=== PATIENT | male | born 1955 | race Caucasian/White ===

== ENCOUNTER → 2019-05-20 | Outpatient (CLI) | payer OTHER ==
[2019-05-20 11:15] LABS: Basophils # (A) 0.1 k/uL (0-0.2); Basophils % (A) 1 %; Eosinophils # (A) 0.6 k/uL (0-0.7); Eosinophils % (A) 7 %; HCT 47.7 % (39.0-53.0); HGB 15.5 gm/dL (13.0-17.5); Lymphocytes # (A) 2.4 k/uL (1.0-4.8); Lymphocytes % (A) 28 %; MCH 29.9 pg (25.0-35.0); MCHC 32.6 g/dL (31.0-37.0); MCV 91.8 fL (80.0-100.0); Mean Platelet Volume 8.4; Monocytes # (A) 0.4 k/uL (0-1.0); Monocytes % (A) 5 %; Neutrophils # (A) 5.1 k/uL (1.3-7.7); Neutrophils % (A) 59 %; Platelet Count 283 k/uL (150-450); RBC 5.19 m/uL (4.30-5.90); RDW 13.5 % (11.5-15.5); WBC 8.7 k/uL (3.8-10.6)
[2019-05-20 11:47] LABS: Partial Thromboplastin Time 23.3 sec (22.0-30.0); Prothrombin Time 10.5 sec (9.0-12.0)
[2019-05-20 13:08] LABS: Appearance,Urine Clear (Clear); Bilirubin,Urine Negative (Negative); Blood,Urine Negative (Negative); Color,Urine Light Yellow; Glucose,Urine (UA) 4+ (Negative); Ketones,Urine Negative (Negative); Leukocyte Esterase,Urine Negative (Negative); Nitrite,Urine Negative (Negative); PH, Urine 5.5 (5.0-8.0); Protein,Urine Negative (Negative); Specific Gravity,Urine 1.032 (1.001-1.035); Urobilinogen,Urine <2.0 mg/dL (<2.0)
[2019-05-20 16:52] LABS: African American GFR (CKD) 111.7 (60.0-200.0); Albumin 4.5 g/dL (3.80-4.90); Albumin/Globulin Ratio 2.25 (1.60-3.17); BUN/Creat Ratio 18.75 Ratio (12.00-20.00); Calcium 9.9 mg/dL (8.7-10.3); Potassium 4.3 mmol/L (3.5-5.5); Total Bilirubin 0.9 mg/dL (0.2-1.2); Total Protein 6.5 g/dL (6.2-8.2)
== END | disposition home or self-care (01) ==
LOC: LABWHC1 10:11
PROVIDERS: ATTEND Family Medicine
DX: Z01.812 Encounter for preprocedural laboratory examination (principal)
CPT/HCPCS: 36415; 80053; 81003; 85025; 85610; 85730; 87070

== ENCOUNTER 2019-06-03 11:45 | Day surgery (SDC) | payer OTHER ==
[~2019-06-03 11:45] MED LIST: ACETAMINOPHEN TAB 500 MG TAB PO ONE; DEXAMETHASONE SOD PHOSPHATE 10 MG/ML 1 ML VIAL IV ONE; HYDROmorphone 0.5 MG/0.5 ML SYRINGE IVP PRN; LIDOCAINE 1% 20 ML VIAL (10MG/ML) FOR IV START INTRADERMA PRN; MELOXICAM 7.5 MG TAB PO ONE; MIDAZOLAM 2 MG/2 ML VIAL IV PRN; ONDANSETRON 4 MG/2 ML VIAL IVP ONE; ROPIVACAINE 246.25 MG, EPINEPHrine 0.5 MG, KETOROLAC 30 MG, cloNIDine HCL/PF 80 MCG, WA... MISCELLANE ONE; SCOPOLAMINE 1.5MG/72HR PATCH TRANSDERM ONE; TRANEXAMIC ACID 1,000 MG in SODIUM CHLORIDE 0.9% 100 ML IVPB ONE; ceFAZolin IN SWFI 2 GM/20 ML SYRINGE IVP ONE
[2019-06-03] MEDS: LACTATED RINGERS 1,000 ML IV SCH (12:39)
[2019-06-03 12:57] LABS: Glucose,Whole Blood 136 mg/dL (75-99)
[2019-06-03] MEDS ORDERED: HYDROcodone/APAP 10-325MG 1 EACH TAB PO PRN (13:22)
[2019-06-03] MEDS ORDERED: TEMAZEPAM 15 MG CAP PO PRN (13:22)
[2019-06-03] MEDS ORDERED: ACETAMINOPHEN TAB 325 MG TAB PO PRN (13:22)
[2019-06-03] MEDS ORDERED: HYDROcodone/APAP 5-325MG 1 EACH TAB PO PRN (13:22)
[2019-06-03] MEDS ORDERED: NA PHOS,M-B/NA PHOS,DI-BA 133 ML ENEMA RECTAL PRN (13:22)
[2019-06-03] MEDS ORDERED: HYDROmorphone 0.5 MG/0.5 ML SYRINGE IVP PRN ×2 (13:22)
[2019-06-03] MEDS ORDERED: MAGNESIUM HYDROXIDE 2,400 MG/10 ML CUP PO PRN (13:22)
[2019-06-03] MEDS ORDERED: ONDANSETRON 4 MG/2 ML VIAL IVP PRN (13:22)
[2019-06-03] MEDS ORDERED: HYDROmorphone 1 MG/ML 1 ML SYRINGE IVP PRN (13:22)
[2019-06-03] MEDS ORDERED: NALOXONE 0.4 MG/ML 1 ML VIAL IV PRN (13:22)
[2019-06-03] MEDS ORDERED: DIAZEPAM 5 MG TAB PO PRN (13:22)
[2019-06-03] MEDS ORDERED: traMADol 50 MG TAB PO PRN (13:22)
[2019-06-03] MEDS ORDERED: BISACODYL 10 MG SUPP RECTAL PRN (13:22)
[2019-06-03] MEDS ORDERED: LACTATED RINGERS 1,000 ML IV ONE (15:08)
[2019-06-03] MEDS ORDERED: diphenhydrAMINE 50 MG/ML 1 ML VIAL IVP ONE (16:03)
--- NOTE | 2019-06-03 16:05 | OP ---
OPERATIVE REPORT DATE OF PROCEDURE: 06/03/2019. SURGEON: Jerald Hinojosa M.D. COMPRESSOR OPERATOR ADJUSTER: Zia STORM. PREOPERATIVE DIAGNOSIS: Left knee osteoarthrosis. POSTOP DIAGNOSIS: Left knee osteoarthrosis. OPERATION PERFORMED: Left total knee arthroplasty. ANESTHESIA: Spinal sedation. ESTIMATED BLOOD LOSS: 100 mL. TOURNIQUET: Tourniquet time was 60 minutes at 250 mmHg. COMPLICATIONS: None apparent. DRAINS: None. DISPOSITION: Postanesthesia care unit. INDICATIONS: Yao is a very pleasant 63-year-old male with longstanding history of left knee pain. History and physical examination are consistent with advanced left knee osteoarthrosis. He has been through significant nonoperative management up to this point. Further treatment options were discussed and he decided to go forward with a left total knee arthroplasty. The risks of procedure were discussed with him in detail. These risks include, but are not limited to risk of infection, nerve damage, bleeding, pain and risk of deep vein thrombosis which could lead to fatal pulmonary embolism. There is also risk of loosening of the implant which could require revision operation. The patient understands these risks. All of his questions were answered to his satisfaction. Appropriate informed consent was obtained. DESCRIPTION OF PROCEDURE: Patient identified in preoperative holding area. Surgical site was marked by both the patient and myself. He was given 2 g of Ancef IV for prophylactic purposes. He was then transferred to the operative suite. He was placed supine on the operative table. Spinal anesthetic was then administered and dosed per the anesthesia without apparent complication. Examination under anesthesia was then performed. The patient was 2-3 degrees shy of full extension. He had 100 degrees of flexion in the medial collateral ligament, lateral collateral ligament. Posterior cruciate ligaments were stable. Tourniquet was then placed high on the left upper thigh well-padded in preparation for surgery. The patient's left lower extremity was then prepped and draped in usual sterile fashion. Standard surgical pause undertaken to ensure that we were operating on the correct site and that appropriate preop antibiotics were given. All staff in the room were in agreement and we proceeded. The outlines of the patella marked with a surgical pen. A planned 12 cm vertical incision centered over the patella was marked with a surgical pen. Leg was then exsanguinated with an Esmarch dressing. The knee was then flexed and tourniquet was inflated to 250 mmHg. The total total tourniquet time for the procedure was 60 minutes. Incision was then made with a 10 blade scalpel. Dissection was carried down sharply overlying fascia. Great care was taken to minimize the skin flaps. The knee was then exposed using a standard medial parapatellar approach. A small cuff of quadriceps tendon was then left for suturing. He was in a bit of varus preoperatively. A standard medial release was then made. The superficial medial collateral ligament was dissected off the bone around the posterior aspect of the proximal tibia. The medial meniscus was then excised as well. The lateral meniscus was also released anteriorly. The leg was then externally rotated. The patella was everted. The knee was flexed. The retractors were then placed to protect the collateral ligaments. I then proceeded to remove the infrapatellar fat pad. This was excised sharply tangentially with the fibers of the patellar tendon. I then proceeded to remove peripheral osteophytes. This was done with a rongeur. I then proceed with the distal femoral resection. He did have near full extension. A planned 9 mm resection was then done. The femoral canal was then entered in the midline of the femur approximately 10 mm anterior to the origin of the posterior cruciate ligament. The raul was then advanced down the center of the femur and placed intramedullary. Based on the preoperative radiographs, the angle between the anatomic and mechanical axis of the femur was approximately 4-5 degrees. The valgus angle of the distal femoral cutting guide was then set at 4 degrees for the left knee. This femoral cutting guide was then advanced over the intramedullary raul. This was seated firmly against the femur. I then mentioned planned to take 9 mm off the distal femur. The cutting block was then secured onto the femur with pins. The jigs were then removed. The distal femoral cut was made through the slot of the block. The pins were then removed. The distal femoral cutting block was removed. The accuracy of the distal femoral cuts was checked with 2 flat bars. I then proceed to femoral sizing. Posterior referencing sizing guide was held firmly against the resected distal surface of the femur. The posterior condyles were resting on the posterior plane of the guide. The sizing stylus was then placed onto the anterior femur. The size measured as a size 11. I then assessed for femoral rotation. The plan was for 3 degrees of external rotation. Three degrees of external rotation was placed onto the jig. These holes were then marked. I then confirmed the rotation by 3 separate methods. This done using epicondylar axis as well as Whitesides line and posterior referencing. It was deemed that the external rotation was proper. I then went forward placing the femoral cutting block. This was placed over the previously placed pin holes. The Luan wing was then placed onto the anterior slots to ensure that we would not notch the anterior femur with the anterior femoral cut. I then proceed with the anterior femoral cut. This was flush with the anterior cortex of the femur. Posterior cuts were then made followed by the anterior chamfer cut, then the posterior chamfer cut. The cutting block was then removed. Throughout the resection, the collateral ligaments were protected with retractors. I then placed a trial size 11 femur. It was slightly wide mediolateral but the narrow was with a fit very nicely and it fit flush with the distal end of the femur. The drill holes were then made. I then proceed with tibial cut. I planned for cruciate retaining knee. The guide was placed in separate varus valgus and for slope. The height was set for approximate 2 mm resection from the medial tibial plateau which was the lower side. I was happy with the alignment and the amount of resection. The cutting block was then pinned to the proximal tibia. The alignment raul was removed. The proximal tibia was resected with a reciprocating saw. Again this was done with retractors protecting the collateral ligaments as well as the posterior cruciate ligament. I then proceeded to evaluate the flexion extension gaps. A 10 mm block was then placed. The flexion-extension gaps were equal. I then proceeded with resection of posterior osteophytes. He had very extensive posterior osteophytes. This was done using a curved osteotome. This resected the posterior osteophytes and posterior capsule stripping was done off the posterior aspect of the femur at this time. The osteophytes were then removed. I then proceed resection of the patella. The thickness of patella was measured using the caliper. The thickness was 24 mm. The thickness of the anticipated patellar dome was taken into account. Resection was then performed and confirmed to be equal in 4 quadrants using a caliper. Approximately 14 mm of bone remained after resection. A 32 x 8.5 mm standard patellar trial was then placed. The holes were drilled. The trial was then placed. I then proceeded with sizing the tibial plate. A size F tibial plate fit very nicely. I then placed the trial femur, the tibial tray and patellar button. A 10 mm trial tibial insert was then also placed. The components fit very nicely. He had full extension and flexion. The flexion-extension gaps were equal and stable to both varus and valgus stress. The patella tracked appropriately. Tibial tray rotation was then marked with a Bovie. This was externally rotated properly. I then proceed with tibial preparation. I first drilled the femoral holes, removed femoral component. The tibial tray was then set for proper external rotation as well as mediolateral placement onto the tibia. It was then pinned into place. I then proceeded with punching the keel. I then decided to proceed with cementing of all of our components. The knee was thoroughly irrigated with sterile saline solution via pulse lavage. The lateral geniculate artery was identified and cauterized. All blood was removed from the bone of the tibia femur and patella with pulse lavage. I then proceeded with cementing. Two packs of antibiotic bone cement prepared on the back table by the surgical garment assembler. I then proceeded with cementing the tibia first. The cement was impacted into the keel as well as deeply seated into the bone. A second coat of cement was then placed. The tibia was then impacted into place. Excess cement was removed with Ruiz's and Joker's. I then proceed with cementing the femoral component. The femoral component was also cemented using standard technique. Excess cement was removed. A 10 mm trial insert was then placed into the knee. It was brought into full extension with a constant axial load placed until the cement had hardened. The patellar component was then cemented. This held firmly with a compressive device until the cement had dried. When the cement had dried, the knee was taken out of extension. All excess cement was removed from around the prosthesis. I then trialed the knee with a 10 mm insert. Flexion extension gaps were appropriate. The knee was stable. It came into full extension. I decided to go forward with a 10 mm cross-linked cruciate-retaining tibial insert. Polyethylene was then placed onto the tibial tray and locked into place. The knee was then reduced. The knee was again further irrigated with sterile saline solution with antibiotic added. The tourniquet was then deflated. Total tourniquet time for the procedure was 60 minutes at 250 mmHg. Final components were Soraida Persona size 11 narrow cruciate-retaining femoral component, a size F tibial tray, a 10 mm medial congruent cruciate-retaining polyethylene insert and a 32 x 8.5 mm patella. I then proceeded with closure. Again, the knee was thoroughly irrigated. The quadriceps tendon and the medial retinaculum were reapproximated with #2 Ethibond suture. The extensor mechanism was then closed with a running #2 Quill suture. Subcutaneous tissues were then closed with 2-0 Vicryl interrupted suture. The skin was closed with a running 3-0 Quill suture. A Dermabond was applied to the incision. Sterile compressive dressing was then applied. All sponge and needle counts were deemed correct prior to closure. The patient tolerated procedure without apparent complication. He was transferred recovery room in stable condition. MMODL / IJN: [id number] /
--- NOTE | 2019-06-03 17:03 | XR ---
EXAMINATION TYPE: XR knee limited LT DATE OF EXAM: 06/03/2019 COMPARISON: NONE HISTORY: Knee pain TECHNIQUE: 2 views FINDINGS: There is a right knee prosthesis. Components are in anatomic position. IMPRESSION: No complicating process seen.
[2019-06-03 17:05] VITALS: BMI 34.5
[2019-06-03 17:12] LABS: Glucose,Whole Blood 163 mg/dL (75-99)
[2019-06-03 20:24] LABS: Glucose,Whole Blood 182 mg/dL (75-99)
[2019-06-03] MEDS ORDERED: SENNOSIDES-DOCUSATE SODIUM 1 EACH TAB PO SCH (21:00)
[2019-06-03] MEDS: ASPIRIN 325 MG TAB PO SCH (21:11)
[2019-06-03] MEDS: ceFAZolin IN SWFI 2 GM/20 ML SYRINGE IVP SCH (21:11)
[2019-06-04] MEDS: ceFAZolin IN SWFI 2 GM/20 ML SYRINGE IVP SCH (04:54)
--- NOTE | 2019-06-04 06:06 | P.PN ---
Progress Note - Text 06/04 19 600am 63 yr 0ld male s/p tkr by Dr Hionjosa, pt is doing well and has a vas of 2,he has c/o of pruritis which should be resolved within 24 hrs.
[2019-06-04 07:17] LABS: Glucose,Whole Blood 124 mg/dL (75-99)
[2019-06-04 07:58] VITALS: BP 106/58; PULSE 71; TEMP 98.2
[2019-06-04 08:00] LABS: Basophils % (A) 0 %; Eosinophils # (A) 0.1 k/uL (0-0.7); Eosinophils % (A) 0 %; HCT 39.5 % (39.0-53.0); HGB 13.2 gm/dL (13.0-17.5); Lymphocytes # (A) 2.2 k/uL (1.0-4.8); Lymphocytes % (A) 14 %; MCH 30.4 pg (25.0-35.0); MCHC 33.4 g/dL (31.0-37.0); MCV 90.9 fL (80.0-100.0); Mean Platelet Volume 8.4; Monocytes # (A) 0.9 k/uL (0-1.0); Monocytes % (A) 6 %; Neutrophils # (A) 11.6 k/uL (1.3-7.7); Neutrophils % (A) 78 %; Platelet Count 247 k/uL (150-450); RBC 4.35 m/uL (4.30-5.90); RDW 13.6 % (11.5-15.5); WBC 14.9 k/uL (3.8-10.6)
--- NOTE | 2019-06-04 08:30 | P.DS ---
Providers Expected date of discharge: 06/04/19 Attending physician: Jerald Hinojosa Consults: 06/03/19 13:22 Consult Physician Routine Consulting Provider: Lars Bella Consult Reason/Comments: post op medical management Do you want consulting provider notified?: Yes Primary care physician: Bayron Madera - Discharge Diagnosis(es) (1) Osteoarthritis of left knee Current Visit: Yes Status: Acute (2) S/P total knee arthroplasty Current Visit: Yes Status: Acute Hospital Course: This is a 63-year-old male with known history of degenerative arthritis of the left knee. The patient presents for evaluation. After discussion and consideration patient elects to proceed with total knee arthroplasty. The patient is seen preoperatively by Dr. Hinojosa and medically cleared for surgery by their primary care physician. Patient is admitted to [facility] on 06/03/2019 for total knee arthroplasty. The procedures performed without complication or sequelae. The patient is doing well postoperatively. Labs and vital signs are stable on day o f discharge. On day of discharge patient's knee incision is healing well. There is minimal erythema. There is no drainage noted at this time. There is minimal soft tissue swelling to the knee. Patient has full foot and ankle motion without difficulty or pain. Calf is soft and nontender to palpation. Neurovascular status to the left lower extremity is intact. Patient is discharged home in g ood condition. Patient refused narcotic pain medication upon discharge. Please see med rec for accurate list of home medications. Plan - Discharge Summary Discharge Rx Participant: Yes New Discharge Prescriptions: New Aspirin 325 mg PO BID #60 tab No Action Triamterene-Hctz 37.5-25Mg [Maxzide 37.5-25] 1 tab PO DAILY Cholecalciferol (Vitamin D3) [Vitamin D3] 2,000 unit PO DAILY Atorvastatin [Lipitor] 10 mg PO HS Lisinopril 20 mg PO DAILY Canagliflozin/Metformin HCl [Invokamet Xr 150-1,000 mg Tab] 1 each PO BID Aspirin [Adult Low Dose Aspirin EC] 81 mg PO HS Discharge Medication List Aspirin [Adult Low Dose Aspirin EC] 81 mg PO HS 05/28/19 [History] Atorvastatin [Lipitor] 10 mg PO HS 05/28/19 [History] Canagliflozin/Metformin HCl [Invokamet Xr 150-1,000 mg Tab] 1 each PO BID 05/28/19 [History] Cholecalciferol (Vitamin D3) [Vitamin D3] 2,000 unit PO DAILY 05/28/19 [History] Lisinopril 20 mg PO DAILY 05/28/19 [History] Triamterene-Hctz 37.5-25Mg [Maxzide 37.5-25] 1 tab PO DAILY 05/28/19 [History] Aspirin 325 mg PO BID #60 tab 06/04/19 [Rx] Follow up Appointment(s)/Referral(s): Jerald Hinojosa MD [STAFF PHYSICIAN] - 2 Weeks Activity/Diet/Wound Care/Special Instructions: Weightbearing as tolerated with a walker. Daily dressing changes, keep incision clean and dry. May shower after 24-48 hours if no drainage from incision. Please follow-up with [facility] and call with any questions or concerns, . Discharge Disposition: HOME WITH HOME HEALTH SERVICES
[2019-06-04] MEDS ORDERED: METFORMIN HCL PO SCH (09:00)
[2019-06-04] MEDS ORDERED: TRIAMTERENE-HCTZ 37.5-25MG 1 EACH TAB PO SCH (09:00)
[2019-06-04] MEDS ORDERED: CANAGLIFLOZIN PO SCH (09:00)
[2019-06-04] MEDS ORDERED: LISINOPRIL 20 MG TAB PO SCH (09:00)
[2019-06-04] MEDS: ASPIRIN 325 MG TAB PO SCH (10:15)
[2019-06-04] MEDS: LACTATED RINGERS 1,000 ML IV SCH (10:18)
[2019-06-04 10:53] VITALS: RESP 16
[2019-06-04] MEDS ORDERED: MULTIVITAMINS, THERA 1 EACH TAB PO SCH (12:00)
--- NOTE | 2019-06-04 12:41 | P.CON ---
Consult Note - . Consult date: 06/04/19 Assessment/Plan:: Reason for consult-medical management. History of present illness This very pleasant 63-year-old gentleman who is seen as a medical consult status post left knee surgery done by Dr. Hinojosa. Patient said that he was having pain in his left knee secondary to arthritis and failed conservative measures that's why surgery was done. Status post surgery at night his blood pressures were on the lower side which have come up nicely. Patient this time of examination was sitting up on the bed, he did not complain of any chest pain racing heart, no cough no shortness of breath, no abdominal pain, nausea and vomiting, or diarrhea constipation, no tingling numbness of his extremities, and additional rest. The patient has dressing applied to the left knee and he says that he is doing good. Past medical history - Hypertension - Diabetes Past surgical history - Left knee meniscus surgery - Left ankle tendon reattachment - Nasal realignment - Lipoma removal Family history - Noncontributory at this stage of time Social history - Patient said that he quit smoking - Drinks alcohol occasionally - No history of any drug abuse Review of systems - Review of systems negative except for what they're were discussed about HPI On exam, alert and oriented x3. HEENT: Conjunctivae normal. eyes normal. NECK: No JVD. No thyroid enlargement. No LNs CARDIOVASCULAR: S1, S2 muffled. No murmur RESPIRATION: Breath sounds diminished in the bases. No rhonchi or crackles. No bronchial breathing. ABDOMEN: Soft, nontender . No guarding. no masses palpable. No ascites, No hepatosplenomegaly.Bowel sounds heard. LEGS: No edema. no swelling NERVOUS SYSTEM: Cranial N 2-12 grossly normal. Moves all 4 limbs. No focal deficits. No sensory deficit. No signs of cerebellar dysfucntion. Skin: no ulcer no rash Joints: No active swelling. No inflammation. Lymphatic system. No LN neck axilla or groin. Assessment Status post left total knee orthoplasty Hypertension Diabetes Plan Patient is admitted under orthopedic surgery service Continue home medications Pain control and DVT prophylaxis as per orthopedic surgery We'll continue to monitor the patient along with you Patient is stable and can be discharged as per orthopedic surgery recommendations Patient is to follow with PCP and with the orthopedic surgery as per the date discussed.
[2019-06-04] MEDS ORDERED: ATORVASTATIN 10 MG TAB PO SCH (21:00)
== END 2019-06-04 13:54 | disposition home health service (06) ==
LOC: OR 11:45 → 4SSUR 16:34 → OR 06-04 13:54
PROVIDERS: ATTEND Orthopaedic Surgery Sports Medicine
DX: M17.12 Unilateral primary osteoarthritis, left knee (principal); M25.762 Osteophyte, left knee; L29.9 Pruritus, unspecified; I10 Essential (primary) hypertension; E11.9 Type 2 diabetes mellitus without complications; Z97.3 Presence of spectacles and contact lenses; Z87.891 Personal history of nicotine dependence; Z79.899 Other long term (current) drug therapy
CPT/HCPCS: 27447; 97116; 97162; 85025; 73560; J0171; J1200; J1100; J2405; J1885; J2795; J0735; J0690 ×2

== ENCOUNTER → 2022-01-31 | Outpatient (CLI) | payer OTHER ==
--- NOTE | 2022-01-31 11:56 | XR ---
EXAMINATION TYPE: XR shoulder complete RT DATE OF EXAM: 01/31/2022 COMPARISON: None available INDICATION: 66-year-old male, fell and pain TECHNIQUE: Standard 4 views of the right shoulder FINDINGS: Mild degenerative changes of the right acromioclavicular joint. Grossly unremarkable glenohumeral art iculation. No humeral head dislocation or significant subluxation. No definite acute fracture line identified. Tiny inferior acromial osteophytosis with maintained acro miohumeral distance. IMPRESSION: No definite acute fracture or shoulder dislocation.
--- NOTE | 2022-01-31 12:00 | XR ---
EXAMINATION TYPE: XR knee complete LT DATE OF EXAM: 01/31/2022 COMPARISON: X-ray dated 06/15/2019 INDICATION: Trauma TECHNIQUE: Standard 3 views of the left knee FINDINGS: Left total knee arthroplasty. 1 mm lucency seen between the medial tibial condyle and the tibial pros thesis, probably insignificant. No gross hardware complication identified otherwise. No definite acute fracture line identified. Supra and infrapatellar soft tissue swelling/effusion. No soft tissue gas. Large enthesophytes at the patellar attachment of the quadriceps tendon. IMPRESSION: No definite acute fracture line identified. Incidental findings as described above.
--- NOTE | 2022-01-31 12:08 | XR ---
EXAMINATION TYPE: XR wrist complete RT DATE OF EXAM: 01/31/2022 CLINICAL HISTORY: pain TECHNIQUE: Frontal, lateral and oblique images of the right wrist are obtained. Scaphoid views also submitted. COMPARISON: None. FINDINGS: Only seen on the lateral projection is a small ossific density within the posterior carpal space whic h could reflect a triquetral fracture. Correlate clinically with point tenderness. The joint spaces appear within normal limits. IMPRESSION: Only seen on the lateral projection is a small ossific density within the posterior carpal space whic h could reflect a triquetral fracture. Correlate clinically with point tenderness.
== END | disposition home or self-care (01) ==
LOC: RADXRMAIN 10:53
PROVIDERS: ATTEND Emergency Medicine
DX: S80.02XA Contusion of left knee, initial encounter (principal); S43.401A Unspecified sprain of right shoulder joint, initial encounter; S63.501A Unspecified sprain of right wrist, initial encounter; W19.XXXA Unspecified fall, initial encounter